=== PATIENT | female | born 1955 | race Native Hawaiian/Other Pacific Islander ===

== ENCOUNTER 2018-08-08 12:44 | Outpatient (CLI) | payer OTHER | END 2018-08-08 21:23 | disposition home or self-care (01) | LOC: RESP 12:44 | DX: R00.2 Palpitations (principal) | CPT/HCPCS: 93225 ==

== ENCOUNTER 2018-08-29 07:58 | Outpatient (CLI) | payer OTHER ==
[~2018-08-29] VITALS: Ht 165.1 cm; Wt 83.9 kg
== END 2018-08-29 22:20 | disposition home or self-care (01) ==
LOC: NM 07:58
DX: R07.89 Other chest pain (principal); Z01.810 Encounter for preprocedural cardiovascular examination; R94.31 Abnormal electrocardiogram [ECG] [EKG]
CPT/HCPCS: A9500; J2785